=== PATIENT | female | born 1945 | race Caucasian/White ===

== ENCOUNTER 2017-05-12 11:12 | Emergency (ER) | payer OTHER ==
[~2017-05-12] VITALS: Ht 165.1 cm; Wt 72.0 kg
[2017-05-12 11:20] VITALS: Ht 165.1 cm; Wt 72.0 kg
--- NOTE | 2017-05-12 14:47 | ERD ---
ER Documentation Chief Complaint Chief Complaint pt bib family with c/o "rash to right lower leg with blisters" shingles? HPI 72 y/o female, previously healthy presents with 3 days of vesicular rash along right leg posterior area. Pain is burning, 6/10. No treatment attempted. No fever or chills ROS All systems reviewed and are negative except as per history of present illness. Medications Home Meds Active Scripts Hydrocodone/Acetaminophen ([place] 5-325 Tablet) 1 Each Tablet, 1 TAB PO Q6H Y for PAIN, #20 TAB Prov:RANDI RIVERA MD 05/12/17 Valacyclovir HCl (Valtrex) 1,000 Mg Tablet, 1000 MG PO TID for 7 Days, TAB Prov:RANDI RIVERA MD 05/12/17 Allergies Allergies: Coded Allergies: No Known Allergy (Unverified , 05/12/17) PMhx/Soc No personal history of DM, HTN or CAD Medical and Surgical Hx: pt denies Medical Hx History of Surgery: Yes ( x1, tubal ligation) Hx Alcohol Use: No Hx Substance Use: No Hx Tobacco Use: No Smoking Status: Never smoker Physical Exam Vitals Vital Signs Date Time Temp Pulse Resp B/P Pulse Ox O2 Delivery O2 Flow Rate FiO2 05/12/17 11:20 98.3 84 16 197/94 100 Physical Exam Const: Alert, oriented in no distress Resp: Clear to auscultation bilaterally Cardio: Regular rate and rhythm, no murmurs Abd: Soft, non tender, non distended. Normal bowel sounds Skin: Vesicular rash with dermatomal; distribution located in right leg Back: No midline or flank tenderness Ext: No cyanosis, or edema Neur: Awake and alert Psych: Normal Mood and Affect Procedures/MDM 72y/o female, previously healthy presents with 3 days with painful rash. (+) chickenpox. (-) Zoster vaccine. Differential: cellulitis, impetigo, contact dermatitis. Classical dermatomal distribution most likely shingles. The patient will be DC home with a Rx for Valtrex 1g tid x7d, pain medication and follow up with PCP/ Departure Diagnosis: Primary Impression: Shingles Condition: Stable Patient Instructions: Shingles (Herpes Zoster) Comments Have prescriptions filled and follow precisely the directions on the label. Follow-up with primary care provider during the next 4 days and bring all the information and medications prescribed. If illness has not improved in 2 days, then make an appointment with primary care provider. If the provider is unavailable, return to the Emergency Department as needed. RANDI RIVERA MD May 12, 2017 14:47
[2017-05-12] MEDS ORDERED: VALA10004 PO (14:50)
[2017-05-12] MEDS ORDERED: HYDR-906 PO (14:51)
[2017-05-12 15:11] VITALS: BP 185/83; PULSE 75; RESP 16; TEMP 98.3
== END 2017-05-12 15:10 | disposition home or self-care (01) ==
LOC: FTE 11:12
DX: B02.9 Zoster without complications (principal)
CPT/HCPCS: 99284